=== PATIENT | female | born 1980 | race Hispanic/Latino ===

== ENCOUNTER 2016-09-05 15:57 | Emergency (ER) | payer MEDICAID, OTHER ==
[~2016-09-05 15:57] MED LIST: ASCO500T8 PO; Docusate Sodium PO; FERR-74 PO; Ibuprofen PO; Oxycodone/Acetaminophen PO
[2016-09-05 16:10] VITALS: BP 111/71; PULSE 71; RESP 16; O2SAT 99
[2016-09-05 17:18] LABS: BASOPHILS % (AUTO) 0.2 % (0-3); EOSINOPHILS % (AUTO) 0.3 % (0-5); MONOCYTES % (AUTO) 6.2 % (4-12); Mean Corpuscular Hemoglobin 26.7 pg (27.0-35.0); Mean Corpuscular Volume 81.4 fL (81-100); NEUTROPHILS % (AUTO) 74.4 % (40-74); Platelet Count 320 bil/L (150-400)
[2016-09-05 19:14] VITALS: BP 103/53; PULSE 63; RESP 16; O2SAT 100
--- NOTE | 2016-09-05 19:46 | ED.REPORT ---
HPI- Female Date of Service Sep 05, 2016 ED Provider: Darrin Zapata MD History of Present Illness: Patient sent from urgent care This is a 36 year old female who is presenting to the emergency department complaining of lower abdominal pain that began one week ago. Associated symptoms include nausea, vomiting, and fever. Also reports vaginal bleeding that began 2 days ago, thought to be her menstrual period. Pt sent from urgent care today, positive there. Pt unaware of prior to visit. Abomdinal pain described as intermittent and stabbing. Denies headache, diarrhea , constipation, hematuria, hematemesis, or dysuria. Ibuprofen today morning with minimal relief. LMP 08/02/2016. Nursing Notes Stated Complaint: ABDOMINAL PAIN Chief Complaint: Female Abdominal Pain Nursing Notes Reviewed: Yes ([employer] not reconciled) Allergies: Coded Allergies: No Known Allergies (Unverified Allergy, Unknown, 09/05/16) Scheduled ([Docusate Sodium]) 100 MG CAPSULE 100 MG PO BID Ascorbic Acid (Vitamin C) 500 Mg Tablet 500 MG PO DAILYWM Ferrous Sulfate (Feosol) 325 Mg Tablet 325 MG PO BIDWM Scheduled PRN ([Ibuprofen]) 600 MG TABLET 600 MG PO Q6H PRN PRN For Pain ([Oxycodone/Acetaminophen]) 1 TAB TABLET 1-2 TAB PO Q4H PRN PRN For Pain General Time Seen by MD: 19:28 Chief Complaint Abdominal pain... Hx Obtained From: Patient Arrived By: Walk-in Sudden in Onset?: Yes Onset Occurred: 1 week ago Symptom Duration: Since onset Severity: Current: Mild Associated with: Reports: Nausea Pertinent Negative: Pt denies other symptoms Recent Healthcare: No recent doctor visit, Recent doctor visit Similar Sx Previous: No Past Medical History Past Medical History (First in 2009, 40 week ended with primary due to arrest of dilation at 7 cm, ecchymotic and in February 2014 and had a premature rupture of membranes and patient shows repeat after discussion of options) Past Surgical History C Section x2 Smoking History Never Smoker Ambulatory Status Independent Review of Systems Constitutional: Reports: Chills, Fever GI: Reports: Abdominal pain, Nausea, Vomiting, Denies: Diarrhea Female: Denies: Dysuria Neurologic: Denies: Headache Complete sys rev & neg: except as marked. Physical Exam Initial Vital Signs Vital Signs (First) Date Time Temp Pulse Resp B/P Pulse Ox O2 Delivery O2 Flow Rate FiO2 09/05/16 16:10 36.1 71 16 111/71 99 Room Air Initial VS: Reviewed Head / Eyes: Atraumatic, Normocephalic, PERRL ENT: Mucous membranes moist, Conjunctiva normal, No scleral icterus Neck: Supple, Non-tender, Full range of motion Respiratory: Breath sounds normal, Clear to auscultation, No respiratory distress Cardiovascular: Regular rate & rhythm, Heart sounds normal, Intact distal pulses Abdomen / GI: Soft, Non-tender, No guarding, No rebound, No distention Extremities: Vascular intact, Neuro intact, No swelling, No tenderness Skin: Warm, Dry, No cyanosis Neurologic: Alert, Oriented, Nonfocal Psychiatric: Mood/affect normal, Behavior normal, Normal thought content Female Genitourinary: Exam deferred General/Constitutional: Awake, Alert Appearance / Presentation: Positive: Uncomfortable Interpretation & Diagnostics Interpretation & Diagnostics: Rh + per old records Lab Results Interpretation Result Diagram: 09/05/16 1702 09/05/16 1702 Test 09/05/16 17:02 09/05/16 17:20 White Blood Count 10.6th/mm3 (3.8-10.1) Red Blood Count 4.20mil/mm3 (3.90-5.20) Hemoglobin 11.2g/dL (12.0-15.6) Hematocrit 34.2% (35.0-46.0) Mean Corpuscular Volume 81.4fL (81-100) Mean Corpuscular Hemoglobin 26.7pg (27.0-35.0) Mean Corpuscular Hemoglobin Concent 32.7% (32.0-37.0) Red Cell Distribution Width 13.2% (12.3-15.4) Platelet Count 320bil/L (150-400) Neutrophils (%) (Auto) 74.4% (40-74) Lymphocytes (%) (Auto) 18.7% (14-46) Monocytes (%) (Auto) 6.2% (4-12) Eosinophils (%) (Auto) 0.3% (0-5) Basophils (%) (Auto) 0.2% (0-3) Sodium Level 138mEq/L (134-144) Potassium Level 3.4mEq/L (3.5-5.2) Chloride Level 102mEq/L (97-108) Carbon Dioxide Level 22mmol/L (18-29) Blood Urea Nitrogen 7mg/dL (6-20) Creatinine 0.47mg/dL (0.57-1.00) Estimat Glomerular Filtration Rate 212mL/min (>59) Glucose Level 102mg/dL (60-99) Calcium Level 8.5mg/dL (8.5-10.1) Magnesium Level 2.0mg/dL (1.6-2.6) Total Bilirubin 0.3mg/dL (0.0-1.2) Aspartate Amino Transf (AST/SGOT) 22U/L (0-50) Alanine Aminotransferase (ALT/SGPT) 20U/L (0-32) Alkaline Phosphatase 72U/L (25-150) Total Protein 6.8g/dL (6.4-8.4) Albumin 3.8g/dL (3.4-5.0) Lipase 36U/L (13-60) HCG Beta Subunit 7637mIU/mL Hold Terry Top Tube Received (Received) Hold Urine Received (Received) Lab Results Interpretation: CBC normal CMP normal Urine positive A RH subtype was not obtained today, given her nausea status-end of the labs have are not even drawn by nurse request and a repeat needle stick would be required, while data indicate that RhoGAM administration and left under 12 weeks is not indicated (additionally I was able to determine patient's Rh+ in the records) HCG 7637 US Focused OB IMPRESSION: 1. There is no definitively visualized intrauterine . The endometrium is thickened with mild appearance of increased vascularity. This is overall nonspecific. Findings could be related to retained products of conception if clinically appropriate. 2. Hypoechoic foci within the left ovary. There overall nonspecific. They could be appliance service representative of a corpus luteal cyst or potentially hemorrhagic cyst. Ectopic cannot be definitively excluded within the differential and recommend correlation to beta hCG levels. Short interval imaging followup is recommended. 3. No visualized free fluid is present within the pelvis. Dictated by: Mady Almaraz M.D. on 09/05/2016 at 21:04 Approved by: Mayd Almaraz M.D. on 09/05/2016 at 21:08 Re-Eval/Medical Decision Med Decision/Clinical Course This is a 36-year-old female who is previously 2 para 2, presented to urgent care complaining of abdominal pain, vaginal bleeding over the past 3 days -she reports she is passed some heavy clots-and his test was positive urgent cares was sent to the ED for further evaluation. She claims she was told that she been through menopause and did not think she could become . She reports lower cramping, and is uncomfortable high symptoms had no fevers chills nausea vomiting. She has no prior history of ectopic. She has had 2 previous C-sections. She reports her last normal period was August 02 On exam initially appeared mildly uncomfortable, but her abdomen is soft nontender with no findings of peritonitis. Her vitals are normal. Her blood work revealed no evidence of anemia, quantitative hCG is over 7000. An ultrasound was obtained, but an IVP was not visible. A definite ectopic was not also seen, small cyst with an extensive differential was visualized. The patient did receive a dose of Tylenol on arrival. Reexam she is entirely comfortable, clinically well-appearing. Again her vitals are normal, abdomen soft nontender, and all of these features and with her having passed any clots earlier the bleeding now improved-strongly argue that she has had a miscarriage rather than an ectopic. However it is been explained that while was suspicious and strongly suspected miscarriage, and ectopic at this point has not been completely excluded. I discussed the case with the plan is discharge with close follow-up in 1 -2 days at the office. It is been carefully explained that if the patient has new or worsening symptoms-increasing bleeding, increasing pain that she needs to return directly to the emergency department. She is discharged clinically well-appearing Source of Hx: Old records Re-Evaluation/Progress : Time of Eval: 21:19 Re-Evaluation/Progress Note: Pain is improved. Discussed lab and ultrasound results. Consultation : Referral / Consult Name: Violetta Gregory MD Call Returned at: 21:28 Biology Manager: Will see in office, Agrees with eval, Agrees with plan Note: OB Differential Diagnosis: Positive: , spontaneous, Negative: Intrauterine , Laceration, Menometrorrhagia, Menorrhagia, Nephrolithiasis Counseled Regarding: Diagnosis, Lab results, Need for follow-up Discharge & Departure Departure Notes I cannot completely exclude ectopic- see MDM Impression: Primary Impression: Vaginal bleeding Additional Impression: Miscarriage Disposition: Home Discharge Condition All VS Reviewed: Yes Condition: Stable Additional Instructions: 1. Your symptoms and exam strongly suggest that you have had a miscarriage. Your blood tests did confirm he were - however no was visible on ultrasound. This indicates either a miscarriage, or outside the uterus, but we did not visualize a outside the uterus either. 2. To be sure your are OK, you do need close follow-up in the next 1-2 days for a recheck. I have talked to Dr. Gregory to help facilitate your follow up. Call her office in the morning to schedule an appointment. 3. Additionally-If you have new or worsening pain, or new worsening bleeding- you need to return directly to the emergency department directly. 4. It is OK to take ibuprofen 400-800mg up to three times a day if needed. [employer] TRANSLATE 1. Leora sntomas y el examen sugieren fuertemente que usted benoit tenido un aborto involuntario. Leora exmenes de jovi confirmaron que estaba embarazado - sin embargo, no se observ embarazo en la ecografa. [place] indica un aborto involuntario, o un embarazo fuera del tero, deangelo tampoco visualizamos un embarazo fuera del tero. 2. Para asegurarse de que usted est malik, usted necesita un seguimiento cercano en los prximos 1-2 moore para augusto revisin. He hablado con el Dr. Gregory para ayudar a facilitar robles seguimiento. Llame a robles oficina por la maana para programar augusto payton. 3. Adicionalmente: Si tiene dolor nuevo o que empeora, o un nuevo empeoramiento de la hemorragia, debe regresar directamente al departamento de emergencias. 4. Est malik herber ibuprofen 400-800mg hasta gracia veces al da si es necesario. Referrals: [facility] (PCP) Scribe Attestation Portions of this note were transcribed by Jael Castillo. I, Dr. Zapata personally performed the history, physical exam and medical decision-making; I reviewed and confirmed the accuracy of the information in the transcribed note. Signed by: angel Vuong. 09/05/2016, 03:00. Darrin Zapata MD Sep 05, 2016 19:46 JAEL CASTILLO Sep 05, 2016 19:48
[2016-09-05 21:02] VITALS: BP 102/66; PULSE 72; RESP 20; O2SAT 98
--- NOTE | 2016-09-05 21:10 | DRSVH ---
PROCEDURE: US PELVIC SONOGRAM + TRANSVAGINAL SONOGRAM INDICATIONS: ro ectopic (pain, bleeding, +HCG) TECHNIQUE: Real-time scanning was performed of the pelvic organs, with image documentation. Additional endovagi nal scanning was necessary due to incomplete visualization of the adnexal and endometrial structures by transabdominal scanning. COMPARISON: None. FINDINGS: Transabdominal scanning: Limited scanning through the kidneys shows no hydronephrosis. No pathologi c free abdominal or pelvic fluid. Endovaginal scanning: Uterus: Uterus is normal in size at 10.9 x 5.0 x 6.4 cm. The endometrium measures 17.3 mm in combin ed thickness. There is appearance of foci of heteroechogenicity within the uterus demonstrating incr eased vascularity. Ovaries: Ovaries demonstrate focal hypo-echoic foci within the right ovary the largest measuring 17 m m. REFERENCE NUMBERS DELETE FROM FINAL REPORT Endometrial thickness: * 5 mm cutoff in post-menopausal women with bleeding. <5 mm equates to 0.07% cancer risk, 5 mm equa jennifer to 7% cancer risk. * 8 mm cutoff in post-menopausal women without bleeding. * 16 mm cutoff in pre-menopausal women. Normal ovarian volumes: * At menarche: 4.2 +/- 2 mL * Pre-menopause: 9 +/- 6 mL * Post-menopause: 3 +/- 2 mL Management of incidental adnexal findings on CT/MRI: ACR White Paper. * Premenopausal: can use 50 years of age as cutoff if LMP not known, to include perimenopausal women. Early post-menopause: within 5 years of LMP, or 50-55 years of age. Late menopause: >5 years from LMP, or >55 years of age. * Exclusions: o Normal findings: hypodense ovary on CT, crenulated corpus luteum, asymmetric ovary (within 95% conf idence interval) with normal shape. o Unimportant findings: calcifications w/o asscd mass lesion, previously characterized by other imagi ng, documented stability for >2 years. * Benign-appearing cysts: oval or round, unilocular with uniform contents (layering blood ok if preme nopausal), regular or imperceptible wall, no solid components or mural nodule, and <10 cm in diameter . o Premenopausal: 5 cm or less, no followup needed. >5 cm: recommend 6-12 week US followup. o Early post-menopause: 3 cm or less, no followup needed. 3-5 cm: recommend 6-12 week US followup. >5 cm: US characterization needed. o Late post-menopause: 3 cm or less, no followup needed. > 3cm: US characterization needed. Can als o use a threshold value of 1 cm. * Probably benign cysts: angulated margins, not round or oval, poorly imaged. o Premenopausal: 3 cm or less, no followup needed. 3-5 cm: 6-12 week US followup. 5 cm: US characte rization needed. o Early post-menopause: 3 cm or less, no followup needed. > 3cm: US characterization. o Late post-menopause: 1 cm or less, no followup needed. > 1cm: US characterization. * Other diagnostic features: include solid component, mural nodule, septations, hyperdense, laying bl ood if post-menopause. o Non-specific features: US characterization needed. o Probably diagnostic features: manage as appropriate. Management of asymptomatic adnexal cysts on US: SRU Consensus Statement * Normal findings: o Dominant follicles 3 cm or less in reproductive age female. o Corpus luteum 3 cm or less in reproductive age female (thick hypervascular simeon, +/- internal echo es, +/- crenulated appearance). o Simple cysts 1 cm or less in postmenopausal females. * Simple cysts OR thin walled cysts with single thin septation/focal wall calcif: o Reproductive age, 5 cm or less: no followup needed. Greater than 5 cm to 7 cm: yearly followup US. o Postmenopausal: >1 cm to 7 cm: yearly followup US. o Any age and size >7 cm: pelvic MRI or surgical consult. * Hemorrhagic cysts: reticular pattern, no internal flow, +/- solid area with concave margins. o Reproductive age, 5 cm or less: no followup needed. Greater than 5 cm: 6-12 week followup US. o Early postmenopause, any size: 6-12 week followup US. o Last postmenopause: consider surgical consult. * Endometrioma: homogeneous internal echoes, +/- echogenic foci in wall. o Any age: 6-12 week followup US. If not surgically removed, yearly followup. * Dermoid: focal or diffuse hyperechoic component, hyperechoic lines/dots, acoustic shadowing. o Yearly followup if not surgically removed. * Lesions with findings suggestive of, but not classic for, hemorrhagic cyst, endometrioma, or dermoi d: o Reproductive age: 6-12 week followup US. If unchanged, consider MRI. If MRI does not confirm endo metrioma or dermoid: surgical consult. o Postmenopause: consider surgical consult. * Cysts with multiple thin septations or mural nodule without flow: o Probably benign, but consider surgical consult. * Cysts with thick irregular septations or mural nodule with flow: o Worrisome for malignancy, consider surgical consult. Polycystic ovarian syndrome reference text. Androgen Excess and PCOS Society criteria (2009): o Hyperandrogenism (hirsuitism or hyperandrogenemia) AND o Ovarian dysfunction (oligo-/anovulation OR polycystic ovaries). [place] criteria for polycystic ovaries: only 1 ovary meeting these criteria is sufficient. o One or both ovaries demonstrate 12 or more follicles 2-9 mm in diameter OR o Ovarian volume exceeds 10 cubic cm by ellipsoid formula. Incidental polycystic ovaries on US: only 5-10% of such women will have classic symptoms of PCOS. Reporting parameters: o Age, LMP. o Menstrual history: regular menstruating women whould be scanned during early follicular phase (day 3-5). Oligo- or amenorrheic women may be scanned at random, or between days 3-5 after progesterone i nduced bleeding. o Medications: oral contraceptives, leuoprolide, fertility medications. Ovary findings: o number and size range of follicles. o Measure largest follicle in 3 axes, and calculate average diameter. o Any follicle >10 mm or corpus luteum should prompt repeat US during next menstrual cycle. o Ovarian volumes using simplified ellipsoid formula. Sample Impression text: o Findings meet the [place] definition of polycystic ovaries. In the absence of ovulatory dysfunction or clinically/biochemically diagnosed hyperandrogenism, findings are non specific and do not indicate th e presence of polycystic ovarian syndrome. o For women with ovulatory dysfunction: Findings meet the [place] 2003 definition for polycystic ov dhruv. Findings and the clinical history of ovulatory dysfunction in the absence of hyperandrogenism satisfy [place] criteria, but not the Androgen Excess and PCOS Society guidelines, for the diagnos is of PCOS. Further clinical evaluation is warranted. IMPRESSION: 1. There is no definitively visualized intrauterine . The endometrium is thickened with mild appearance of increased vascularity. This is overall nonspecific. Findings could be related to retai martinez products of conception if clinically appropriate. 2. Hypoechoic foci within the left ovary. There overall nonspecific. They could be welding equipment sales representative of a corpus luteal cyst or potentially hemorrhagic cyst. Ectopic cannot be definitively exclud ed within the differential and recommend correlation to beta hCG levels. Short interval imaging follo wup is recommended. 3. No visualized free fluid is present within the pelvis. Dictated by: Mady Almaraz M.D. on 09/05/2016 at 21:04 Approved by: Mady Almaraz M.D. on 09/05/2016 at 21:08
[2016-09-05] MEDS ORDERED: _Ondansetron ODT 4 mg Tablet PO PRN (21:25)
== END 2016-09-05 22:15 | disposition home or self-care (01) ==
LOC: SED 15:57
DX: O03.9 Complete or unspecified spontaneous abortion without complication (principal); O21.0 Mild hyperemesis gravidarum; O26.891 Other specified pregnancy related conditions, first trimester; R50.9 Fever, unspecified; Z3A.01 Less than 8 weeks gestation of pregnancy